=== PATIENT | female | born 1945 | race American Indian/Alaskan Native ===

== ENCOUNTER 2017-03-28 07:10 | Day surgery (SDC) | payer MEDICARE ==
[2017-03-28] MEDS ORDERED: Propofol 10 mg/ml Inj (20 ML) ONE (08:23)
[2017-03-28] MEDS ORDERED: Lactated Ringer's 1,000 ML IV ONE (08:30)
--- NOTE | 2017-03-28 08:34 | CP.SDSHP ---
Same Day Surgery H & P - History Proposed Procedure: colonoscopy Pre-Op Diagnosis: family h/o colon cancer. h/o colon polyps - Previous Medical/Surgical History Cardiac: Hypertension, Other (;hyperlipidemia, ) Endocrine/Metabolic: Diabetes Neuro: TIA/CVA Misc: Other (depression, colon polyps) - Allergies Allergies: Allergies No Known Allergies Allergy (Unverified 04/15/13 10:42) - Physical Exam Vital Signs: Vital Signs 03/28/17 07:30 Temperature 97.1 F L Pulse Rate 84 Respiratory 18 Rate Blood Pressure 141/84 O2 Sat by Pulse 97 Oximetry Mental Status: Alert & Oriented x3 Neuro: WNL Heart: WNL Lungs: WNL GI: WNL - Impression Impression: family h/o colon cancer. h/o colon polyps Pt. Evaluated Today:Candidate for Anesthesia & Procedure: Yes - Date & Time Date: 03/28/17 Time: 08:34 Short Stay Discharge - Short Stay Discharge Admitting Diagnosis/Reason for Visit: CONDSTIPATION / COLON POLYPS Disposition: HOME/ ROUTINE
[2017-03-28 11:09] VITALS: TEMP 97
[2017-03-28 11:13] VITALS: O2SAT 98
[2017-03-28 11:15] VITALS: BP 140/83; PULSE 75; RESP 18
== END 2017-03-28 10:00 | disposition home or self-care (01) ==
LOC: C.ENDO 07:10
PROVIDERS: ATTEND Internal Medicine Gastroenterology
DX: Z12.11 Encounter for screening for malignant neoplasm of colon (principal); K59.00 Constipation, unspecified; Z86.010 Personal history of colon polyps; Z80.0 Family history of malignant neoplasm of digestive organs
CPT/HCPCS: 45378; 82948; J2704; J7120